=== PATIENT | male | born 1965 | race Caucasian/White ===

== ENCOUNTER 2024-08-02 02:55 | Inpatient (IN) | payer SELFPAY ==
[2024-08-02] VITALS (7 sets, daily range): BP systolic 122–185; BP diastolic 88–108; PULSE 74–111; RESP 18–20; TEMP 97.1–98.2; O2SAT 98–99
[~2024-08-02] VITALS: Ht 180.3 cm; Wt 72.6 kg
[~2024-08-02 02:55] MED LIST: ACET-2247 PO; ASPI81CT95 PO; ATOR20TA40 PO; LISI-953 PO; METO25TA PO
[2024-08-02] MEDS ORDERED: LABETALOL 20 MG/4 ML VIAL IVP ONE (03:15)
[2024-08-02] MEDS ORDERED: hydrALAZINE 20 MG/ML VIAL ONE (03:26)
[2024-08-02] MEDS: ED NON STOCK ORDER 1 EA MISC IV ONE (03:40)
[2024-08-02] MEDS: NITROGLYCERIN 2% 1 GM PKT TP ONE (03:40)
[2024-08-02 03:56] LABS: BASOPHILS # (AUTO) 0.1 K/uL (0.00-0.22); BASOPHILS % (AUTO) 2.1 % (0.0-2.0); EOSINOPHILS # (AUTO) 0.3 K/uL (0-0.4); EOSINOPHILS % (AUTO) 5.1 % (0.0-4.0); HEMATOCRIT 37.4 % (36-52); HEMOGLOBIN 12.3 g/dL (12.0-18.0); LYMPHOCYTES # (AUTO) 2.6 K/uL (2.0-11.5); LYMPHOCYTES % (AUTO) 41.6 % (20.5-51.1); MEAN CORPUSCULAR HEMOGLOBIN 29 pg (27-31); MEAN CORPUSCULAR HGB CONC 33 g/dL (33-37); MEAN CORPUSCULAR VOLUME 88.2 fL (80-94); MONOCYTES # (AUTO) 0.6 K/uL (0.8-1.0); MONOCYTES % (AUTO) 9.2 % (1.7-9.3); NEUTROPHILS # (AUTO) 2.6 K/uL (1.8-7.7); PLATELET COUNT (AUTO) 267 K/uL (140-450); RED BLOOD CELL COUNT(AUTO) 4.24 MIL/uL (4.20-6.10); RED CELL DISTRIBUTION WIDTH 14.3 % (11.6-13.7); WHITE BLOOD COUNT (AUTO) 6.1 K/uL (4.8-10.8)
[2024-08-02 04:23] LABS: ANION GAP 10.2 (8-16); CARBON DIOXIDE 29.8 mmol/L (21-32)
[2024-08-02 04:26] LABS: ALANINE AMINOTRANSFERASE 23 U/L (12-78); ALKALINE PHOSPHATASE 98 U/L (50-136); ASPARTATE AMINOTRANSFERASE 16 U/L (15-37); BILIRUBIN,DIRECT 0.1 mg/dL (0.0-0.3); TOTAL BILIRUBIN 0.2 mg/dL (0.0-1.0)
[2024-08-02 04:27] LABS: ALBUMIN 3.4 g/dL (3.4-5.0); TOTAL PROTEIN, SERUM 6.8 g/dL (6.4-8.2)
[2024-08-02] MEDS ORDERED: HYDROcodone/APAP 5/325 MG 1 TAB TAB PO PRN (04:45)
[2024-08-02] MEDS ORDERED: ACETAMINOPHEN 325 MG TAB PO PRN (04:45)
[2024-08-02] MEDS: MORPHINE SULFATE 2 MG/ML SYR IVP PRN (05:43)
[2024-08-02] MEDS: ENOXAPARIN 80 MG/0.8 ML SYR SUBQ ONE (06:09)
[2024-08-02] MEDS: ED NON STOCK ORDER 1 EA MISC IVP ONE (06:10)
[2024-08-02] MEDS: hydrALAZINE 20 MG/ML VIAL ONE (06:30)
[2024-08-02] MEDS: ASPIRIN 81 MG TAB.CHEW PO SCH (10:00)
[2024-08-02] MEDS: CLONIDINE HYDROCHLORIDE 0.1 MG TAB PO SCH (10:01)
[2024-08-02] MEDS: carvediloL 6.25 MG TAB PO SCH (20:59)
[2024-08-02] MEDS: LOSARTAN 25 MG TAB PO SCH (20:59)
[2024-08-02] MEDS ORDERED: ATORVASTATIN 20 MG TAB PO SCH (21:00)
[2024-08-02] MEDS ORDERED: METOPROLOL 25 MG TAB PO SCH (21:00)
[2024-08-03] MEDS ORDERED: ATORVASTATIN 20 MG TAB PO SCH (09:00)
[2024-08-03] MEDS ORDERED: lisinopriL 20 MG TAB PO SCH (09:00)
== END 2024-08-02 23:59 | disposition home or self-care (01) | DRG 311 ==
LOC: MED 02:55 → MTU 04:45
PROVIDERS: ADMIT Student in an Organized Health Care Education/Training Program; ATTEND Student in an Organized Health Care Education/Training Program
DX: I24.9 Acute ischemic heart disease, unspecified (principal); I25.5 Ischemic cardiomyopathy; I10 Essential (primary) hypertension; I25.10 Atherosclerotic heart disease of native coronary artery without angina pectoris; Z79.82 Long term (current) use of aspirin; I25.2 Old myocardial infarction; Z95.5 Presence of coronary angioplasty implant and graft; Z86.73 Personal history of transient ischemic attack (TIA), and cerebral infarction without residual deficits; Z79.899 Other long term (current) drug therapy
CPT/HCPCS: 36415; 71045; 80048; 80076; 83880; 84484; 85025; 85379; 87081; 93005; 99285; J0360; J1650; J2270; Q0092